=== PATIENT | female | born 1970 | race Caucasian/White ===

== ENCOUNTER 2016-07-26 09:21 | Emergency (ER) | payer MEDICAID ==
[2016-07-26] MEDS ORDERED: OPTIRAY 350 50 ML HMH IV ONE (09:22)
[2016-07-26] MEDS ORDERED: LORAZEPAM 2 MG/ML VIAL ONE (09:38)
[2016-07-26] MEDS ORDERED: FOSPHENYTOIN 1,000 PE in SODIUM CHLORIDE 0.9% 100 ML IV ONE (09:45)
[2016-07-26] MEDS ORDERED: ONDANSETRON 4 MG VIAL ONE ×2 (11:16→11:20)
[2016-07-26] MEDS ORDERED: METOCLOPRAMIDE 10 MG/2 ML VIAL ONE (12:11)
[2016-07-26] MEDS ORDERED: SODIUM CHLORIDE 0.9% 1,000 ML ONE (12:11)
== END 2016-07-26 14:01 | disposition home or self-care (01) ==
LOC: ER 09:21
DX: G40.309 Generalized idiopathic epilepsy and epileptic syndromes, not intractable, without status epilepticus (principal); Z79.899 Other long term (current) drug therapy; I10 Essential (primary) hypertension; F41.1 Generalized anxiety disorder; Z85.3 Personal history of malignant neoplasm of breast
CPT/HCPCS: 36415; 70470; 80047; 80307; 84703; 85014; 85025; 96361; 96374; 96375